=== PATIENT | female | born 1940 | race Caucasian/White ===

== ENCOUNTER 2016-08-16 14:49 | Emergency (ER) | payer MEDICARE ==
[~2016-08-16] VITALS: Ht 154.9 cm; Wt 77.0 kg
[~2016-08-16 14:49] MED LIST: ACYCLOVIR800 MG PO; AMOXICILLIN500 MG PO; ASPIRIN EC81 MG PO; ASPIRIN LOW DOS81 M2 PO; CIPRO XR500 MG PO; CIPROFLOXACN500 MG PO; EC ASPIRIN325 MG PO; FLEXERIL10 MG PO; HYDROCHLORO25 MG/TAB PO; LISINOPRIL10 MG PO; LISINOPRIL20 MG PO; LORTAB 10 PO; LORTAB 5/3255 MG PO; LORTAB5 PO; LOVASTATIN10 MG PO; LOVASTATIN20 MG PO; NO; NYSTATIN100000 M1 PO; PRAVASTATIN SOD20 MG PO; PRILOSEC20 MG/CAP PO; TOPROL XL50 MG PO; ULTRAM50 M1 PO; ZOFRAN4 MG/TAB PO
[2016-08-16] MEDS ORDERED: OMEPRAZOLE10 MG PO (15:08)
[2016-08-16 16:00] LABS: HEMOGLOBIN 15.2 g/dl (12.0-16.0); IMMATURE GRANULOCYTES 0.2 % (0.0-1.0); MEAN CELL VOLUME 89.1 fL CALC (80.0-100.0); MEAN CORPUSCULAR HGB 29.5 pG CALC (26.0-32.0); NEUT# 5.47 thou/uL (2.00-7.15); RED BLOOD COUNT 5.16 mill/uL (4.20-5.60); RED CELL DISTRI WIDTH 13.3 % (11.5-15.5)
[2016-08-16 16:01] LABS: URINE BILIRUBIN - DIPSTICK NEGATIVE (NEGATIVE); URINE BLOOD DIPSTICK NEGATIVE (NEGATIVE); URINE CLARITY CLEAR; URINE COLOR YELLOW; URINE GLUCOSE - DIPSTICK NEGATIVE (NEGATIVE); URINE KETONE NEGATIVE (NEGATIVE); URINE LEUK ESTERASE NEGATIVE (NEGATIVE); URINE NITRITE - DIPSTICK NEGATIVE (Negative); URINE PH 5.5 (4.5-8.0); URINE PROTEIN - DIPSTICK NEGATIVE (NEG-TRACE); URINE SPECIFIC GRAVITY >=1.030
[2016-08-16 16:19] LABS: ALKALINE PHOSPHATASE 94 u/l (38-126); ANION GAP 15 (6-22 (CALC)); BILIRUBIN, TOTAL 0.8 mg/dL (0.0-1.4); BUN 13 mg/dL (8-23); BUN/CREATININE RATIO 18 (12-20 (CALC)); CARBON DIOXIDE 23 mmol/l (22-30); CHLORIDE 110 mmol/l (95-108); CREATININE 0.8 mg/dL (0.5-1.0); GFR > 60 ML/MIN (>=60 (CALC)); GFR FOR AFR.AMER. > 60 ML/MIN (>=60 (CALC)); GLUCOSE 115 mg/dL (82-115); POTASSIUM 3.7 mmol/l (3.5-5.1); SGOT/AST 50 u/l (9-36); SGPT/ALT 56 u/l (11-66); SODIUM 145 mmol/l (137-146); TOTAL PROTEIN 7.3 g/dL (6.3-8.2)
[2016-08-16 16:30] LABS: MYOGLOBIN 52 ng/mL (0 - 62)
[2016-08-16 18:13] VITALS: BP 198/89
== END 2016-08-16 18:22 | disposition home or self-care (01) ==
LOC: ED 14:49
PROVIDERS: Emergency Medicine
DX: I10 Essential (primary) hypertension (principal); D75.1 Secondary polycythemia; M19.90 Unspecified osteoarthritis, unspecified site; Z87.11 Personal history of peptic ulcer disease; Z87.442 Personal history of urinary calculi; R94.31 Abnormal electrocardiogram [ECG] [EKG]

== ENCOUNTER 2016-09-20 17:04 | Emergency (ER) | payer MEDICARE ==
[~2016-09-20] VITALS: Ht 154.9 cm; Wt 76.0 kg
[~2016-09-20 17:04] MED LIST changes: +OMEPRAZOLE10 MG PO
[2016-09-20 19:56] LABS: HEMATOCRIT 43.6 % (37.0-47.0); HEMOGLOBIN 14.4 g/dl (12.0-16.0); IMMATURE GRANULOCYTES 0.3 % (0.0-1.0); MEAN CELL VOLUME 90.1 fL CALC (80.0-100.0); MEAN CORPUSCULAR HGB 29.8 pG CALC (26.0-32.0); NEUT# 7.26 thou/uL (2.00-7.15); RED BLOOD COUNT 4.84 mill/uL (4.20-5.60); RED CELL DISTRI WIDTH 13.6 % (11.5-15.5)
[2016-09-20 20:22] LABS: ALBUMIN 3.5 g/dL (3.2-5.0); ALKALINE PHOSPHATASE 80 u/l (38-126); ANION GAP 14 (6-22 (CALC)); BILIRUBIN, TOTAL 0.9 mg/dL (0.0-1.4); BUN 14 mg/dL (8-23); BUN/CREATININE RATIO 23 (12-20 (CALC)); CALCIUM 8.6 mg/dL (8.4-10.2); CARBON DIOXIDE 17 mmol/l (22-30); CHLORIDE 110 mmol/l (95-108); CREATININE 0.6 mg/dL (0.5-1.0); GFR > 60 ML/MIN (>=60 (CALC)); GFR FOR AFR.AMER. > 60 ML/MIN (>=60 (CALC)); GLUCOSE 112 mg/dL (82-115); POTASSIUM 3.7 mmol/l (3.5-5.1); SGOT/AST 32 u/l (9-36); SGPT/ALT 48 u/l (11-66); SODIUM 136 mmol/l (137-146); TOTAL PROTEIN 6.6 g/dL (6.3-8.2)
[2016-09-20 20:34] LABS: MYOGLOBIN 48 ng/mL (0 - 62)
[2016-09-20] MEDS ORDERED: AMLODIPINE5 MG PO (21:03)
[2016-09-20 21:10] LABS: URINE BLOOD DIPSTICK NEGATIVE (NEGATIVE); URINE CLARITY CLEAR; URINE COLOR YELLOW; URINE GLUCOSE - DIPSTICK NEGATIVE (NEGATIVE); URINE KETONE NEGATIVE (NEGATIVE); URINE LEUK ESTERASE NEGATIVE (NEGATIVE); URINE NITRITE - DIPSTICK NEGATIVE (Negative); URINE PH 5.5 (4.5-8.0); URINE PROTEIN - DIPSTICK TRACE mg/dL (NEG-TRACE); URINE SPECIFIC GRAVITY >=1.030
[2016-09-20 21:17] LABS: URINE BILIRUBIN - DIPSTICK SMALL (NEGATIVE)
[2016-09-20 21:38] VITALS: BP 127/58
== END 2016-09-20 21:48 | disposition home or self-care (01) ==
LOC: ED 17:04
PROVIDERS: Emergency Medicine
DX: R55 Syncope and collapse (principal); R19.7 Diarrhea, unspecified; Y92.531 Health care provider office as the place of occurrence of the external cause; I10 Essential (primary) hypertension; R10.9 Unspecified abdominal pain

== ENCOUNTER 2016-09-24 19:14 | Emergency (ER) | payer MEDICARE ==
[~2016-09-24] VITALS: Ht 154.9 cm; Wt 77.0 kg
[~2016-09-24 19:14] MED LIST changes: +AMLODIPINE5 MG PO
[2016-09-24] MEDS ORDERED: ZITHROMAX250 MG PO (20:37)
[2016-09-24 21:03] VITALS: BP 148/84
== END 2016-09-24 21:05 | disposition home or self-care (01) ==
LOC: ED 19:14
DX: S60.512A Abrasion of left hand, initial encounter (principal); I10 Essential (primary) hypertension; M19.90 Unspecified osteoarthritis, unspecified site; D75.1 Secondary polycythemia; W55.03XA Scratched by cat, initial encounter; Y93.89 Activity, other specified; Y92.008 Other place in unspecified non-institutional (private) residence as the place of occurrence of the external cause

== ENCOUNTER 2017-10-06 07:47 | Inpatient (IN) | payer MEDICARE ==
[~2017-10-06] VITALS: Ht 157.5 cm; Wt 75.9 kg
[~2017-10-06 07:47] MED LIST changes: +ZITHROMAX250 MG PO
[2017-10-06 08:39] LABS: HEMATOCRIT 46.9 % (37.0-47.0); HEMOGLOBIN 15.6 g/dl (12.0-16.0); IMMATURE GRANULOCYTES 0.4 % (0.0-1.0); MEAN CELL VOLUME 91.6 fL CALC (80.0-100.0); MEAN CORPUSCULAR HGB 30.5 pG CALC (26.0-32.0); MEAN CORPUSCULAR HGB CONC 33.3 g/L CALC (32.0-36.0); NEUT# 10.37 thou/uL (2.00-7.15); RED BLOOD COUNT 5.12 mill/uL (4.20-5.60); RED CELL DISTRI WIDTH 13.3 % (11.5-15.5)
[2017-10-06 08:49] LABS: ALBUMIN 4.4 g/dL (3.2-5.0); ALKALINE PHOSPHATASE 110 u/l (38-126); BUN 18 mg/dL (8-23); BUN/CREATININE RATIO 27 (12-20 (CALC)); CHLORIDE 111 mmol/l (95-108); CREATININE 0.7 mg/dL (0.5-1.0); GFR > 60 ML/MIN (>=60 (CALC)); GFR FOR AFR.AMER. > 60 ML/MIN (>=60 (CALC)); LIPASE 175 u/l (23-300); POTASSIUM 3.5 mmol/l (3.5-5.1); SGOT/AST 40 u/l (9-36); SGPT/ALT 54 u/l (11-66); SODIUM 145 mmol/l (137-146)
[2017-10-06 09:01] LABS: ANION GAP 22 (6-22 (CALC)); CARBON DIOXIDE 16 mmol/l (22-30)
[2017-10-06 09:27] LABS: C. DIFFICILE TOXIN A&B NEGATIVE (NEGATIVE)
[2017-10-06 10:28] LABS: URINE BILIRUBIN - DIPSTICK NEGATIVE (NEGATIVE); URINE BLOOD DIPSTICK SMALL (NEGATIVE); URINE COLOR YELLOW; URINE GLUCOSE - DIPSTICK NEGATIVE (NEGATIVE); URINE KETONE TRACE mg/dL (NEGATIVE); URINE LEUK ESTERASE NEGATIVE (NEGATIVE); URINE NITRITE - DIPSTICK NEGATIVE (Negative); URINE PROTEIN - DIPSTICK NEGATIVE (NEG-TRACE); URINE UROBILINOGEN - DIPSTICK 0.2 E.U./dL (0.2)
[2017-10-06 10:30] LABS: URINE CLARITY CLEAR
[2017-10-06 10:36] LABS: URINE SQUAMOUS EPITHELIAL CELL FEW EPI/hpf (0-FEW); URINE WBC 0-2 WBC/hpf (0-5)
[2017-10-06 11:13] VITALS: BP 150/86
[2017-10-06 15:05] VITALS: BP 115/75
[2017-10-06 19:08] VITALS: BP 131/81
[2017-10-07 04:00] VITALS: BP 134/71
[2017-10-07 07:43] VITALS: BP 124/86
[2017-10-07] MEDS ORDERED: VITAMIN D50000 UNIT (09:15)
[2017-10-07] MEDS ORDERED: ALEVE220 M2 PO (09:16)
[2017-10-07 11:29] VITALS: BP 123/85
[2017-10-07 13:14] LABS: MAGNESIUM 2.3 mg/dL (1.6-2.3)
[2017-10-07 16:02] VITALS: BP 117/73
[2017-10-07 19:30] VITALS: BP 118/76
[2017-10-08 04:00] VITALS: BP 111/73
[2017-10-08 05:18] LABS: HEMATOCRIT 43.5 % (37.0-47.0); HEMOGLOBIN 14.4 g/dl (12.0-16.0); IMMATURE GRANULOCYTES 1.4 % (0.0-1.0); MEAN CELL VOLUME 92.8 fL CALC (80.0-100.0); MEAN CORPUSCULAR HGB 30.7 pG CALC (26.0-32.0); MEAN CORPUSCULAR HGB CONC 33.1 g/L CALC (32.0-36.0); NEUT# 4.65 thou/uL (2.00-7.15); RED BLOOD COUNT 4.69 mill/uL (4.20-5.60); RED CELL DISTRI WIDTH 13.8 % (11.5-15.5)
[2017-10-08 05:31] LABS: BUN 5 mg/dL (8-23); BUN/CREATININE RATIO 8 (12-20 (CALC)); CHLORIDE 112 mmol/l (95-108); CREATININE 0.6 mg/dL (0.5-1.0); GFR > 60 ML/MIN (>=60 (CALC)); GFR FOR AFR.AMER. > 60 ML/MIN (>=60 (CALC)); SODIUM 145 mmol/l (137-146)
[2017-10-08 05:33] LABS: ANION GAP 16 (6-22 (CALC)); POTASSIUM 4.1 mmol/l (3.5-5.1)
[2017-10-08 05:34] LABS: CARBON DIOXIDE 21 mmol/l (22-30)
[2017-10-08 09:33] VITALS: BP 123/78
[2017-10-08 09:37] VITALS: BP 123/78
[2017-10-08] MEDS ORDERED: METRONIDAZOL500 MG PO (12:40)
[2017-10-08] MEDS ORDERED: FLORASTOR250 M1 PO (12:40)
[2017-10-08] MEDS ORDERED: CIPROFLOXACN500 MG PO (12:40)
== END 2017-10-08 14:05 | disposition home or self-care (01) | DRG 392 ==
LOC: ED 07:47 → ED-I 10:00 → ED 10:09 → MS2 10:10
PROVIDERS: Emergency Medicine; Nurse Practitioner Family; ADMIT Internal Medicine; ATTEND Internal Medicine
DX: K52.9 Noninfective gastroenteritis and colitis, unspecified (principal); E87.2 Acidosis; E86.0 Dehydration; I10 Essential (primary) hypertension; K21.9 Gastro-esophageal reflux disease without esophagitis; E78.5 Hyperlipidemia, unspecified; M19.90 Unspecified osteoarthritis, unspecified site; Z87.442 Personal history of urinary calculi; Z87.11 Personal history of peptic ulcer disease

== ENCOUNTER 2019-04-20 23:39 | Emergency (ER) | payer MEDICARE ==
[~2019-04-20] VITALS: Ht 157.5 cm; Wt 73.6 kg
[~2019-04-20 23:39] MED LIST changes: +ALEVE220 M2 PO; +FLORASTOR250 M1 PO; +METRONIDAZOL500 MG PO; +VITAMIN D50000 UNIT
[2019-04-21 01:08] LABS: HEMATOCRIT 43.1 % (37.0-47.0); HEMOGLOBIN 13.9 g/dl (12.0-16.0); IMMATURE GRANULOCYTES 0.3 % (0.0-5.0); MEAN CELL VOLUME 92.1 fL CALC (80.0-100.0); MEAN CORPUSCULAR HGB 29.7 pG CALC (26.0-32.0); MEAN CORPUSCULAR HGB CONC 32.3 g/L CALC (32.0-36.0); NEUT# 8.99 thou/uL (2.00-7.15); RED BLOOD COUNT 4.68 mill/uL (4.20-5.60); RED CELL DISTRI WIDTH 13.1 % (11.5-15.5)
[2019-04-21 01:21] LABS: ALBUMIN 3.8 g/dL (3.2-5.0); ALKALINE PHOSPHATASE 114 u/l (38-126); AMYLASE 61 u/l (30-110); BUN 18 mg/dL (8-23); BUN/CREATININE RATIO 23 (12-20 (CALC)); CHLORIDE 106 mmol/l (95-108); CREATININE 0.8 mg/dL (0.5-1.0); GFR > 60 ML/MIN (>=60 (CALC)); GFR FOR AFR.AMER. > 60 ML/MIN (>=60 (CALC)); LIPASE 35 u/l (23-300); POTASSIUM 3.7 mmol/l (3.5-5.1); SGOT/AST 34 u/l (9-36); SODIUM 136 mmol/l (137-146); TOTAL PROTEIN 7.1 g/dL (6.3-8.2)
[2019-04-21 01:22] LABS: ANION GAP 17 (6-22 (CALC)); CARBON DIOXIDE 17 mmol/l (22-30)
[2019-04-21 01:33] LABS: MYOGLOBIN 70 ng/mL (0 - 62)
[2019-04-21 01:46] LABS: URINE BILIRUBIN - DIPSTICK NEGATIVE (NEGATIVE); URINE BLOOD DIPSTICK NEGATIVE (NEGATIVE); URINE COLOR YELLOW; URINE GLUCOSE - DIPSTICK NEGATIVE (NEGATIVE); URINE KETONE TRACE mg/dL (NEGATIVE); URINE LEUK ESTERASE NEGATIVE (NEGATIVE); URINE NITRITE - DIPSTICK NEGATIVE (Negative); URINE PROTEIN - DIPSTICK NEGATIVE (NEG-TRACE)
[2019-04-21] MEDS ORDERED: TAMSULOSIN0.4 MG PO (02:49)
[2019-04-21] MEDS ORDERED: LORTAB 1010 MG PO (02:49)
[2019-04-21] MEDS ORDERED: CEPHALEXIN500 MG PO (02:49)
[2019-04-21 04:18] VITALS: BP 132/78
== END 2019-04-21 04:18 | disposition home or self-care (01) ==
LOC: ED 23:39
PROVIDERS: Emergency Medicine
DX: N13.2 Hydronephrosis with renal and ureteral calculous obstruction (principal); I10 Essential (primary) hypertension; E11.9 Type 2 diabetes mellitus without complications

== ENCOUNTER 2021-08-23 07:47 | Emergency (ER) | payer MEDICARE ==
[~2021-08-23] VITALS: Ht 157.5 cm; Wt 77.5 kg
[~2021-08-23 07:47] MED LIST changes: +CEPHALEXIN500 MG PO; +LORTAB 1010 MG PO; +TAMSULOSIN0.4 MG PO
[2021-08-23 07:58] VITALS: BP 140/78
[2021-08-23 08:00] VITALS: BP 133/87
[2021-08-23] MEDS ORDERED: VOLTAREN1%GEL TOP (08:14)
[2021-08-23] MEDS ORDERED: FLEXERIL5 M1 PO (08:14)
[2021-08-23] MEDS ORDERED: FLONASE AL50 MCG/ACT (08:14)
[2021-08-23 08:15] VITALS: BP 117/72
[2021-08-23 08:30] VITALS: BP 118/72
== END 2021-08-23 08:45 | disposition home or self-care (01) ==
LOC: ED 07:47
DX: M54.50 Low back pain, unspecified (principal); J30.2 Other seasonal allergic rhinitis; I10 Essential (primary) hypertension; Z87.442 Personal history of urinary calculi

== ENCOUNTER 2022-04-10 09:24 | Inpatient (IN) | payer MEDICARE ==
[2022-04-10] VITALS (19 sets, daily range): BP systolic 114–151; BP diastolic 61–100
[~2022-04-10] VITALS: Ht 157.5 cm; Wt 72.0 kg
[~2022-04-10 09:24] MED LIST changes: +FLEXERIL5 M1 PO; +FLONASE AL50 MCG/ACT; +VOLTAREN1%GEL TOP
[2022-04-10] MEDS ORDERED: MONTELUKAST SOD10 MG PO (09:36)
[2022-04-10] MEDS ORDERED: METFORMIN500 M2 PO (09:37)
[2022-04-10 09:48] LABS: HEMATOCRIT 48.7 % (37.0-47.0); IMMATURE GRANULOCYTES 0.1 % (0.0-5.0); MEAN CELL VOLUME 90.7 fL CALC (80.0-100.0); MEAN CORPUSCULAR HGB 29.8 pG CALC (26.0-32.0); MEAN CORPUSCULAR HGB CONC 32.9 g/dL CAL (32.0-36.0); NEUT# 5.98 thou/uL (2.00-7.15); RED BLOOD COUNT 5.37 mill/uL (4.20-5.60); RED CELL DISTRI WIDTH 13.8 % (11.5-15.5)
[2022-04-10 10:25] LABS: ALBUMIN 4.1 g/dL (3.2-5.0); ALKALINE PHOSPHATASE 66 u/l (38-126); ANION GAP 14 (6-22 (CALC)); BILIRUBIN, TOTAL 0.8 mg/dL (0.0-1.4); BUN 14 mg/dL (8-23); BUN/CREATININE RATIO 16 (12-20 (CALC)); CARBON DIOXIDE 21 mmol/l (22-30); CHLORIDE 112 mmol/l (95-108); CREATININE 0.9 mg/dL (0.5-1.0); GFR FOR AFR.AMER. > 60 ML/MIN (>=60 (CALC)); GFR OTHER RACES 60 ML/MIN (>=60 (CALC)); POTASSIUM 3.9 mmol/l (3.5-5.1); SGOT/AST 44 u/l (9-36); SODIUM 143 mmol/l (137-146); TOTAL PROTEIN 7.4 g/dL (6.3-8.2)
[2022-04-11] VITALS (7 sets, daily range): BP systolic 106–133; BP diastolic 61–85
[2022-04-11 06:01] LABS: CHOLESTEROL HDL RATIO 3.4 (<4.4 (CALC))
[2022-04-12] VITALS: BP 106/61
[2022-04-12 03:30] VITALS: BP 116/72
[2022-04-12 04:00] VITALS: BP 116/72
[2022-04-12 06:16] LABS: HEMATOCRIT 49.9 % (37.0-47.0); HEMOGLOBIN 16.8 g/dl (12.0-16.0); MEAN CELL VOLUME 89.3 fL CALC (80.0-100.0); MEAN CORPUSCULAR HGB 30.1 pG CALC (26.0-32.0); MEAN CORPUSCULAR HGB CONC 33.7 g/dL CAL (32.0-36.0); RED BLOOD COUNT 5.59 mill/uL (4.20-5.60)
[2022-04-12 06:28] LABS: ALBUMIN 3.9 g/dL (3.2-5.0); ALKALINE PHOSPHATASE 69 u/l (38-126); ANION GAP 15 (6-22 (CALC)); BUN 22 mg/dL (8-23); BUN/CREATININE RATIO 28 (12-20 (CALC)); CARBON DIOXIDE 21 mmol/l (22-30); CHLORIDE 107 mmol/l (95-108); CREATININE 0.8 mg/dL (0.5-1.0); GFR FOR AFR.AMER. > 60 ML/MIN (>=60 (CALC)); GFR OTHER RACES > 60 ML/MIN (>=60 (CALC)); POTASSIUM 3.9 mmol/l (3.5-5.1); SGOT/AST 40 u/l (9-36); SODIUM 139 mmol/l (137-146); TOTAL PROTEIN 6.8 g/dL (6.3-8.2)
[2022-04-12 06:31] VITALS: BP 116/78
[2022-04-12 06:31] LABS: BILIRUBIN, TOTAL 1.2 mg/dL (0.0-1.4)
[2022-04-12 11:00] VITALS: BP 114/70
[2022-04-12] MEDS ORDERED: LASIX 40 MG TAB40 MG PO (12:13)
[2022-04-12] MEDS ORDERED: K-TABS10 MEQ PO (12:15)
[2022-04-12 14:10] VITALS: BP 123/70
== END 2022-04-12 14:30 | disposition home health service (06) | DRG 291 ==
LOC: ED 09:24 → ED-I 13:00 → ED 13:36 → MS2 13:37
PROVIDERS: Family Medicine; Nurse Practitioner Family; ADMIT Internal Medicine; ATTEND Internal Medicine
DX: I11.0 Hypertensive heart disease with heart failure (principal); I50.41 Acute combined systolic (congestive) and diastolic (congestive) heart failure; E11.9 Type 2 diabetes mellitus without complications; E78.5 Hyperlipidemia, unspecified; Z87.11 Personal history of peptic ulcer disease; K21.9 Gastro-esophageal reflux disease without esophagitis; Z79.84 Long term (current) use of oral hypoglycemic drugs; Z20.822 Contact with and (suspected) exposure to COVID-19
CPT/HCPCS: J1650; Q9967

== ENCOUNTER 2022-06-22 10:51 | Observation (INO) | payer MEDICARE ==
[~2022-06-22] VITALS: Ht 157.5 cm; Wt 71.6 kg
[2022-06-22] VITALS (13 sets, daily range): BP systolic 97–140; BP diastolic 56–78
[~2022-06-22 10:51] MED LIST changes: -AMLODIPINE5 MG PO; +K-TABS10 MEQ PO; +LASIX 40 MG TAB40 MG PO; +LISINOPRIL20 M1 PO; -LISINOPRIL20 MG PO; +METFORMIN500 M2 PO; +MONTELUKAST SOD10 MG PO; +NORVASC5 M1 PO
[2022-06-22 11:22] LABS: BASO% 0.4 % (0-3); EOS% 2.3 % (0-8); HEMATOCRIT 47.8 % (37.0-47.0); HEMOGLOBIN 15.4 g/dl (12.0-16.0); IMMATURE GRANULOCYTES 0.2 % (0.0-5.0); LYMPH% 14.3 % (15-41); MEAN CELL VOLUME 92.6 fL CALC (80.0-100.0); MEAN CORPUSCULAR HGB 29.8 pG CALC (26.0-32.0); MEAN CORPUSCULAR HGB CONC 32.2 g/dL CAL (32.0-36.0); MONO% 12.8 % (2-13); NEUT# 6.96 thou/uL (2.00-7.15); RED BLOOD COUNT 5.16 mill/uL (4.20-5.60); RED CELL DISTRI WIDTH 13.6 % (11.5-15.5)
[2022-06-22 11:38] LABS: ALBUMIN 3.8 g/dL (3.2-5.0); ALKALINE PHOSPHATASE 88 u/l (38-126); ANION GAP 11 (6-22 (CALC)); BILIRUBIN, TOTAL 0.8 mg/dL (0.02-1.3); BUN 12 mg/dL (8-23); BUN/CREATININE RATIO 15 (12-20 (CALC)); CARBON DIOXIDE 23 mmol/l (22-30); CHLORIDE 107 mmol/l (95-108); CREATININE 0.8 mg/dL (0.5-1.0); GFR FOR AFR.AMER. > 60 ML/MIN (>=60 (CALC)); GFR OTHER RACES > 60 ML/MIN (>=60 (CALC)); POTASSIUM 3.8 mmol/l (3.5-5.1); SGOT/AST 43 u/l (9-36); SODIUM 137 mmol/l (137-146); TOTAL PROTEIN 6.9 g/dL (6.3-8.2)
[2022-06-22 21:13] LABS: URINE BILIRUBIN - DIPSTICK NEGATIVE (NEGATIVE); URINE BLOOD DIPSTICK NEGATIVE (NEGATIVE); URINE COLOR YELLOW; URINE GLUCOSE - DIPSTICK NEGATIVE (NEGATIVE); URINE KETONE NEGATIVE (NEGATIVE); URINE PH 6.5 (4.5-8.0); URINE PROTEIN - DIPSTICK NEGATIVE (NEG-TRACE)
[2022-06-22 21:15] LABS: URINE LEUK ESTERASE SMALL (NEGATIVE); URINE NITRITE - DIPSTICK NEGATIVE (Negative)
[2022-06-22 21:20] LABS: URINE BACTERIA MANY hpf; URINE SQUAMOUS EPITHELIAL CELL FEW EPI/hpf (0-FEW)
[2022-06-23] VITALS (7 sets, daily range): BP systolic 118–136; BP diastolic 67–83
[2022-06-23 05:42] LABS: BASO% 0.8 % (0-3); EOS% 0.8 % (0-8); HEMOGLOBIN 15.3 g/dl (12.0-16.0); IMMATURE GRANULOCYTES 0.1 % (0.0-5.0); LYMPH% 17.1 % (15-41); MEAN CELL VOLUME 93.1 fL CALC (80.0-100.0); MEAN CORPUSCULAR HGB 30.3 pG CALC (26.0-32.0); MEAN CORPUSCULAR HGB CONC 32.6 g/dL CAL (32.0-36.0); MONO% 16.6 % (2-13); NEUT# 4.55 thou/uL (2.00-7.15); NEUT% 64.6 % (42-76); RED BLOOD COUNT 5.05 mill/uL (4.20-5.60); RED CELL DISTRI WIDTH 13.8 % (11.5-15.5)
[2022-06-23 06:22] LABS: ALBUMIN 3.7 g/dL (3.2-5.0); ALKALINE PHOSPHATASE 81 u/l (38-126); ANION GAP 11 (6-22 (CALC)); BILIRUBIN, TOTAL 0.9 mg/dL (0.02-1.3); BUN 12 mg/dL (8-23); BUN/CREATININE RATIO 17 (12-20 (CALC)); CARBON DIOXIDE 22 mmol/l (22-30); CHLORIDE 107 mmol/l (95-108); CREATININE 0.7 mg/dL (0.5-1.0); GFR FOR AFR.AMER. > 60 ML/MIN (>=60 (CALC)); GFR OTHER RACES > 60 ML/MIN (>=60 (CALC)); POTASSIUM 4.3 mmol/l (3.5-5.1); SGOT/AST 37 u/l (9-36); SODIUM 137 mmol/l (137-146); TOTAL PROTEIN 6.6 g/dL (6.3-8.2)
[2022-06-24] VITALS (9 sets, daily range): BP systolic 104–117; BP diastolic 63–84
[2022-06-24 05:13] LABS: BASO% 0.6 % (0-3); EOS% 0.8 % (0-8); HEMATOCRIT 49.1 % (37.0-47.0); IMMATURE GRANULOCYTES 0.3 % (0.0-5.0); LYMPH% 22.3 % (15-41); MEAN CELL VOLUME 91.9 fL CALC (80.0-100.0); MEAN CORPUSCULAR HGB CONC 32.6 g/dL CAL (32.0-36.0); MONO% 16.9 % (2-13); NEUT# 4.27 thou/uL (2.00-7.15); NEUT% 59.1 % (42-76); RED BLOOD COUNT 5.34 mill/uL (4.20-5.60); RED CELL DISTRI WIDTH 13.9 % (11.5-15.5)
[2022-06-24 05:29] LABS: ANION GAP 11 (6-22 (CALC)); BUN 13 mg/dL (8-23); BUN/CREATININE RATIO 19 (12-20 (CALC)); CARBON DIOXIDE 24 mmol/l (22-30); CHLORIDE 104 mmol/l (95-108); CREATININE 0.7 mg/dL (0.5-1.0); GFR FOR AFR.AMER. > 60 ML/MIN (>=60 (CALC)); GFR OTHER RACES > 60 ML/MIN (>=60 (CALC)); MAGNESIUM 1.9 mg/dL (1.6-2.3); POTASSIUM 4.1 mmol/l (3.5-5.1); SODIUM 135 mmol/l (137-146)
[2022-06-24] MEDS ORDERED: XARELTO20 MG PO (10:09)
[2022-06-24] MEDS ORDERED: AMLODIPINE BESYL5 MG PO (10:10)
[2022-06-25 04:25] VITALS: BP 111/74
[2022-06-25 05:32] LABS: BASO% 0.5 % (0-3); EOS% 0.4 % (0-8); HEMATOCRIT 49.6 % (37.0-47.0); HEMOGLOBIN 16.1 g/dl (12.0-16.0); IMMATURE GRANULOCYTES 0.3 % (0.0-5.0); LYMPH% 23.6 % (15-41); MEAN CELL VOLUME 91.7 fL CALC (80.0-100.0); MEAN CORPUSCULAR HGB 29.8 pG CALC (26.0-32.0); MEAN CORPUSCULAR HGB CONC 32.5 g/dL CAL (32.0-36.0); MONO% 17.1 % (2-13); NEUT# 4.37 thou/uL (2.00-7.15); NEUT% 58.1 % (42-76); RED BLOOD COUNT 5.41 mill/uL (4.20-5.60); RED CELL DISTRI WIDTH 13.7 % (11.5-15.5)
[2022-06-25 05:47] LABS: ALBUMIN 3.9 g/dL (3.2-5.0); ALKALINE PHOSPHATASE 80 u/l (38-126); ANION GAP 12 (6-22 (CALC)); BILIRUBIN, TOTAL 1.2 mg/dL (0.02-1.3); BUN 15 mg/dL (8-23); BUN/CREATININE RATIO 20 (12-20 (CALC)); CARBON DIOXIDE 24 mmol/l (22-30); CHLORIDE 102 mmol/l (95-108); CREATININE 0.8 mg/dL (0.5-1.0); GFR FOR AFR.AMER. > 60 ML/MIN (>=60 (CALC)); GFR OTHER RACES > 60 ML/MIN (>=60 (CALC)); MAGNESIUM 2.1 mg/dL (1.6-2.3); POTASSIUM 4.3 mmol/l (3.5-5.1); SGOT/AST 41 u/l (9-36); SODIUM 133 mmol/l (137-146); TOTAL PROTEIN 7.2 g/dL (6.3-8.2)
[2022-06-25 06:45] VITALS: BP 115/71
[2022-06-25 06:46] VITALS: BP 115/71
[2022-06-25] MEDS ORDERED: KEFLEX500 MG PO (10:33)
[2022-06-25 10:35] VITALS: BP 124/77
== END 2022-06-25 11:26 | disposition home health service (06) ==
LOC: ED 10:51 → ED-I 12:20 → ED 12:35 → MS2 12:36
PROVIDERS: Family Medicine; Nurse Practitioner Family; ADMIT Internal Medicine; ATTEND Internal Medicine
DX: R55 Syncope and collapse (principal); I48.19 Other persistent atrial fibrillation; I95.9 Hypotension, unspecified; I11.0 Hypertensive heart disease with heart failure; I50.22 Chronic systolic (congestive) heart failure; E11.65 Type 2 diabetes mellitus with hyperglycemia; E78.5 Hyperlipidemia, unspecified; K21.9 Gastro-esophageal reflux disease without esophagitis; D75.1 Secondary polycythemia; M17.0 Bilateral primary osteoarthritis of knee; R82.71 Bacteriuria; Z87.442 Personal history of urinary calculi; Z87.11 Personal history of peptic ulcer disease; Z79.84 Long term (current) use of oral hypoglycemic drugs

== ENCOUNTER 2022-12-05 07:53 | Emergency (ER) | payer MEDICARE ==
[~2022-12-05] VITALS: Ht 157.5 cm; Wt 74.0 kg
[2022-12-05] VITALS (9 sets, daily range): BP systolic 149–178; BP diastolic 84–126
[~2022-12-05 07:53] MED LIST changes: +AMLODIPINE BESYL5 MG PO; +KEFLEX500 MG PO; +XARELTO20 MG PO
[2022-12-05 09:01] LABS: BASO% 0.8 % (0-3); EOS% 2.6 % (0-8); HEMATOCRIT 49.5 % (37.0-47.0); HEMOGLOBIN 15.2 g/dl (12.0-16.0); IMMATURE GRANULOCYTES 0.4 % (0.0-5.0); LYMPH% 17.6 % (15-41); MEAN CELL VOLUME 91.5 fL CALC (80.0-100.0); MEAN CORPUSCULAR HGB 28.1 pG CALC (26.0-32.0); MEAN CORPUSCULAR HGB CONC 30.7 g/dL CAL (32.0-36.0); MONO% 6.9 % (2-13); NEUT# 5.21 thou/uL (2.00-7.15); NEUT% 71.7 % (42-76); RED BLOOD COUNT 5.41 mill/uL (4.20-5.60); RED CELL DISTRI WIDTH 13.5 % (11.5-15.5)
[2022-12-05 09:09] LABS: ALBUMIN 4.3 g/dL (3.2-5.0); ALKALINE PHOSPHATASE 106 u/l (38-126); ANION GAP 17 (6-22 (CALC)); BILIRUBIN, TOTAL 1.2 mg/dL (0.02-1.3); BUN 14 mg/dL (8-23); BUN/CREATININE RATIO 19 (12-20 (CALC)); CARBON DIOXIDE 18 mmol/l (22-30); CHLORIDE 107 mmol/l (95-108); CREATININE 0.8 mg/dL (0.5-1.0); GFR FOR AFR.AMER. > 60 ML/MIN (>=60 (CALC)); GFR OTHER RACES > 60 ML/MIN (>=60 (CALC)); SGOT/AST 45 u/l (9-36); SODIUM 138 mmol/l (137-146); TOTAL PROTEIN 8.1 g/dL (6.3-8.2)
[2022-12-05] MEDS ORDERED: LASIX 40 MG TAB40 MG PO (09:47)
== END 2022-12-05 10:10 | disposition home or self-care (01) ==
LOC: ED 07:53
PROVIDERS: Family Medicine
DX: I11.0 Hypertensive heart disease with heart failure (principal); I50.9 Heart failure, unspecified; I48.91 Unspecified atrial fibrillation; Z20.822 Contact with and (suspected) exposure to COVID-19; R06.02 Shortness of breath

== ENCOUNTER 2022-12-31 11:59 | Observation (INO) | payer MEDICARE ==
[~2022-12-31] VITALS: Ht 157.5 cm; Wt 74.3 kg
[2022-12-31 12:19] VITALS: BP 143/96
[2022-12-31 12:32] VITALS: BP 164/103
[2022-12-31 12:43] LABS: BASO% 0.3 % (0-3); EOS% 3.1 % (0-8); HEMOGLOBIN 14.9 g/dl (12.0-16.0); IMMATURE GRANULOCYTES 0.3 % (0.0-5.0); LYMPH% 14.9 % (15-41); MEAN CELL VOLUME 91.3 fL CALC (80.0-100.0); MEAN CORPUSCULAR HGB 28.3 pG CALC (26.0-32.0); MONO% 9.1 % (2-13); NEUT# 6.77 thou/uL (2.00-7.15); NEUT% 72.3 % (42-76); RED BLOOD COUNT 5.26 mill/uL (4.20-5.60)
[2022-12-31 12:57] LABS: ALBUMIN 3.6 g/dL (3.2-5.0); ALKALINE PHOSPHATASE 104 u/l (38-126); ANION GAP 18 (6-22 (CALC)); BILIRUBIN, TOTAL 1.2 mg/dL (0.02-1.3); BUN 8 mg/dL (8-23); BUN/CREATININE RATIO 12 (12-20 (CALC)); CARBON DIOXIDE 18 mmol/l (22-30); CHLORIDE 107 mmol/l (95-108); CREATININE 0.7 mg/dL (0.5-1.0); GFR FOR AFR.AMER. > 60 ML/MIN (>=60 (CALC)); GFR OTHER RACES > 60 ML/MIN (>=60 (CALC)); POTASSIUM 4.2 mmol/l (3.5-5.1); SGOT/AST 45 u/l (9-36); SODIUM 140 mmol/l (137-146); TOTAL PROTEIN 6.8 g/dL (6.3-8.2)
[2022-12-31] MEDS ORDERED: DILTIAZEM30 MG PO (15:07)
[2022-12-31] MEDS ORDERED: METOPROLOL100 M1 PO (15:08)
[2022-12-31] MEDS ORDERED: ATORVASTATIN CA40 MG PO (15:13)
[2022-12-31] MEDS ORDERED: [UNRECOGNIZED DRUG - OTHER] (15:14)
[2022-12-31 17:29] VITALS: BP 149/115
[2022-12-31 19:34] VITALS: BP 139/77
[2022-12-31 19:37] VITALS: BP 139/77
[2023-01-01] VITALS (8 sets, daily range): BP systolic 120–142; BP diastolic 67–94
[2023-01-01] MEDS ORDERED: LORTAB5 PO ×2 (17:37→18:04)
[2023-01-02 00:17] VITALS: BP 129/71
[2023-01-02 04:30] VITALS: BP 137/84
[2023-01-02 05:26] LABS: BASO% 0.5 % (0-3); EOS% 0.8 % (0-8); IMMATURE GRANULOCYTES 0.6 % (0.0-5.0); LYMPH% 17.7 % (15-41); MEAN CORPUSCULAR HGB 28.6 pG CALC (26.0-32.0); MEAN CORPUSCULAR HGB CONC 32.1 g/dL CAL (32.0-36.0); MONO% 12.3 % (2-13); NEUT# 8.41 thou/uL (2.00-7.15); NEUT% 68.1 % (42-76); RED BLOOD COUNT 4.37 mill/uL (4.20-5.60); RED CELL DISTRI WIDTH 14.4 % (11.5-15.5)
[2023-01-02 05:38] LABS: HEMATOCRIT 38.9 % (37.0-47.0); HEMOGLOBIN 12.5 g/dl (12.0-16.0)
[2023-01-02 06:04] LABS: ALBUMIN 3.1 g/dL (3.2-5.0); ALKALINE PHOSPHATASE 88 u/l (38-126); BILIRUBIN, TOTAL 1.5 mg/dL (0.02-1.3); BUN 9 mg/dL (8-23); BUN/CREATININE RATIO 14 (12-20 (CALC)); CHLORIDE 106 mmol/l (95-108); CREATININE 0.6 mg/dL (0.5-1.0); GFR FOR AFR.AMER. > 60 ML/MIN (>=60 (CALC)); GFR OTHER RACES > 60 ML/MIN (>=60 (CALC)); MAGNESIUM 1.8 mg/dL (1.6-2.3); SGOT/AST 33 u/l (9-36); SODIUM 136 mmol/l (137-146); TOTAL PROTEIN 6.1 g/dL (6.3-8.2)
[2023-01-02 06:06] LABS: ANION GAP 9 (6-22 (CALC)); POTASSIUM 4.2 mmol/l (3.5-5.1)
[2023-01-02 06:17] LABS: CARBON DIOXIDE 25 mmol/l (22-30)
[2023-01-02 07:00] VITALS: BP 150/80
[2023-01-02 11:30] VITALS: BP 149/89
[2023-01-02 16:00] VITALS: BP 162/105
[2023-01-02 21:01] VITALS: BP 137/83
[2023-01-03 00:26] VITALS: BP 128/78
[2023-01-03 04:35] VITALS: BP 134/86
[2023-01-03 06:37] VITALS: BP 134/92
[2023-01-03] MEDS ORDERED: LORTAB5 PO (09:26)
[2023-01-03] MEDS ORDERED: SENNA LAXATIVE8.6 MG PO (09:37)
[2023-01-03 10:49] VITALS: BP 135/83
== END 2023-01-03 11:40 ==
LOC: ED 11:59 → ED-I 12:24 → ED 12:24 → ED-I 15:40 → ED 15:50 → MS2 15:51
PROVIDERS: Nurse Practitioner; Student in an Organized Health Care Education/Training Program; ADMIT Student in an Organized Health Care Education/Training Program; ATTEND Nurse Practitioner Family
DX: S42.291A Other displaced fracture of upper end of right humerus, initial encounter for closed fracture (principal); E86.0 Dehydration; I95.1 Orthostatic hypotension; I69.954 Hemiplegia and hemiparesis following unspecified cerebrovascular disease affecting left non-dominant side; I11.0 Hypertensive heart disease with heart failure; I50.9 Heart failure, unspecified; E11.9 Type 2 diabetes mellitus without complications; I48.91 Unspecified atrial fibrillation; W07.XXXA Fall from chair, initial encounter; Y92.009 Unspecified place in unspecified non-institutional (private) residence as the place of occurrence of the external cause; Z79.01 Long term (current) use of anticoagulants; Z79.84 Long term (current) use of oral hypoglycemic drugs

== ENCOUNTER 2023-06-13 06:49 | Day surgery (SDC) | payer MEDICARE ==
[~2023-06-13] VITALS: Ht 157.5 cm; Wt 63.5 kg
[~2023-06-13 06:49] MED LIST changes: +ATORVASTATIN CA40 MG PO; +DILTIAZEM30 MG PO; +LIDOCAINE45 TOP; +METOPROLOL100 M1 PO; +OMNICEF300 MG PO; +SENNA LAXATIVE8.6 MG PO; +[UNRECOGNIZED DRUG - OTHER]
[2023-06-13 10:21] VITALS: BP 142/80
== END 2023-06-13 10:40 | disposition home or self-care (01) ==
LOC: ORM 06:49
PROVIDERS: ATTEND Urology
PROC: 0TP98DZ Removal of Intraluminal Device from Ureter, Via Natural or Artificial Opening Endoscopic (ICD-10-PCS; principal; 2023-06-13)
DX: N20.1 Calculus of ureter (principal); E11.9 Type 2 diabetes mellitus without complications; I48.91 Unspecified atrial fibrillation; E78.5 Hyperlipidemia, unspecified; I10 Essential (primary) hypertension; K21.9 Gastro-esophageal reflux disease without esophagitis; D75.1 Secondary polycythemia; Z96.0 Presence of urogenital implants
CPT/HCPCS: C1769; J1956; Q9966

== ENCOUNTER 2023-06-17 10:58 | Emergency (ER) | payer MEDICARE ==
[2023-06-17] VITALS (67 sets, daily range): BP systolic 61–120; BP diastolic 32–82
[~2023-06-17] VITALS: Ht 157.5 cm; Wt 55.9 kg
[2023-06-17] MEDS ORDERED: VANCOMYCIN HCL 1 GM in SODIUM CHLORIDE 0.9% 250 ML IV ONE (11:05)
[2023-06-17] MEDS ORDERED: SODIUM CHLORIDE 0.9% 1,000 ML IV ONE ×3 (11:10→14:05)
[2023-06-17] MEDS ORDERED: SODIUM CHLORIDE 0.9% 500 ML IV ONE (11:10)
[2023-06-17] MEDS ORDERED: CEFEPIME HYDROCHLORIDE 2 GM in SODIUM CHLORIDE 0.9% 100 ML IV ONE (11:10)
[2023-06-17] MEDS ORDERED: NOREPINEPHRINE BITARTRATE 4 MG in DEXTROSE 5% 250 ML IV ONE ×2 (11:10→16:25)
[2023-06-17] MEDS ORDERED: SODIUM CHLORIDE 0.9% 100 ML BAG IV ONE (11:20)
[2023-06-17] MEDS ORDERED: SODIUM CHLORIDE 0.9% 100 ML IV ONE (11:20)
[2023-06-17] MEDS ORDERED: PHENYLEPHRINE HCL 10 MG/ML VIAL IV ONE (11:20)
[2023-06-17 11:58] LABS: HEMOGLOBIN 10.9 g/dl (12.0-16.0); IMMATURE GRANULOCYTES 3.9 % (0.0-5.0); LYMPH% 1.3 % (15-41); MEAN CELL VOLUME 98.9 fL CALC (80.0-100.0); MEAN CORPUSCULAR HGB 30.8 pG CALC (26.0-32.0); MEAN CORPUSCULAR HGB CONC 31.1 g/dL CAL (32.0-36.0); MONO% 3.1 % (2-13); NEUT# 27.31 thou/uL (2.00-7.15); RED BLOOD COUNT 3.54 mill/uL (4.20-5.60); RED CELL DISTRI WIDTH 15.3 % (11.5-15.5)
[2023-06-17 12:11] LABS: NEUT% 91.7 % (42-76)
[2023-06-17 12:30] LABS: CREATININE 2.1 mg/dL (0.5-1.0); POTASSIUM 4.3 mmol/l (3.5-5.1)
[2023-06-17 12:31] LABS: ALBUMIN 2.6 g/dL (3.2-5.0); BILIRUBIN, TOTAL 3.8 mg/dL (0.02-1.3); TOTAL PROTEIN 5.9 g/dL (6.3-8.2)
[2023-06-17] MEDS ORDERED: PIPERACILLIN Sodium-Tazobactam 3.375 GM in SODIUM CHLORIDE 0.9% 100 ML IV ONE (15:20)
[2023-06-17] MEDS ORDERED: METOPROLOL SUCC50 MG PO (16:22)
== END 2023-06-17 16:55 ==
LOC: ED 10:58
PROVIDERS: Family Medicine
PROC: 06HY33Z Insertion of Infusion Device into Lower Vein, Percutaneous Approach (ICD-10-PCS; principal; 2023-06-17)
PROC: 3E043XZ Introduction of Vasopressor into Central Vein, Percutaneous Approach (ICD-10-PCS; 2023-06-17)
DX: A41.9 Sepsis, unspecified organism (principal); R65.21 Severe sepsis with septic shock; J18.9 Pneumonia, unspecified organism; K81.0 Acute cholecystitis; K83.09 Other cholangitis; K85.90 Acute pancreatitis without necrosis or infection, unspecified; I50.9 Heart failure, unspecified; I48.91 Unspecified atrial fibrillation; I69.954 Hemiplegia and hemiparesis following unspecified cerebrovascular disease affecting left non-dominant side; Z87.11 Personal history of peptic ulcer disease; Z87.442 Personal history of urinary calculi; Z20.822 Contact with and (suspected) exposure to COVID-19
CPT/HCPCS: J0692

== ENCOUNTER 2024-06-23 11:15 | Emergency (ER) | payer MEDICARE ==
[~2024-06-23] VITALS: Ht 157.5 cm; Wt 68.0 kg
[2024-06-23] VITALS (8 sets, daily range): BP systolic 120–139; BP diastolic 66–109
[~2024-06-23 11:15] MED LIST changes: +METOPROLOL SUCC50 MG PO
== END 2024-06-23 13:23 | disposition home or self-care (01) ==
LOC: ED 11:15
DX: M79.672 Pain in left foot (principal); S51.812A Laceration without foreign body of left forearm, initial encounter; W18.30XA Fall on same level, unspecified, initial encounter; Y92.009 Unspecified place in unspecified non-institutional (private) residence as the place of occurrence of the external cause; I50.9 Heart failure, unspecified; I48.91 Unspecified atrial fibrillation